=== PATIENT | female | born 1945 | race Caucasian/White ===

== ENCOUNTER 2024-12-21 06:36 | Outpatient (CLI) | payer MEDICARE, OTHER ==
[~2024-12-21 06:36] MED LIST: GABA-347; OMEP-84
== END 2024-12-21 23:59 | disposition home or self-care (01) ==
LOC: MRI02 06:36
PROVIDERS: ATTEND Physician Assistant Surgical
DX: M19.071 Primary osteoarthritis, right ankle and foot (principal); M65.871 Other synovitis and tenosynovitis, right ankle and foot; M76.61 Achilles tendinitis, right leg; M77.8 Other enthesopathies, not elsewhere classified; M79.671 Pain in right foot; M25.571 Pain in right ankle and joints of right foot
CPT/HCPCS: 73721